=== PATIENT | female | born 1955 | race Caucasian/White ===

== ENCOUNTER 2021-05-18 12:02 | Observation (INO) ==
[2021-05-18] MEDS ORDERED: Ipratropium/Albuterol Neb 3 ML IH ONE (12:31)
[2021-05-18] MEDS ORDERED: Aspirin 325 MG TABLET PO ONE (12:31)
[2021-05-18] MEDS ORDERED: Famotidine 20 MG/2 ML VIAL IVP ONE (13:02)
[2021-05-18] MEDS ORDERED: Pantoprazole 40 MG VIAL IVP ONE (13:02)
[2021-05-18 13:17] LABS: Basophils # 0.1 K/mcL (0.0-0.2); Basophils % 0.3 %; Eosinophils # 0.2 K/mcL (0.0-0.6); Eosinophils % 0.8 %; Hematocrit 39.4 % (35.3-44.9); Hemoglobin 13.2 g/dL (11.5-15.4); Immature Granulocytes % 0.6 % (0-4); Lymphocytes # 0.8 K/mcL (0.6-4.6); Lymphocytes % 4.6 %; Mean Corpuscular HGB Conc 33.5 g/dL (31.6-35.5); Mean Corpuscular Hemoglobin 30.9 pg (28.0-33.3); Mean Corpuscular Volume 92.3 fL (83.0-100.0); Mean Platelet Volume 11.2 fL (9.4-12.4); Monocytes # 1.7 K/mcL (0.0-1.3); Monocytes % 9.6 %; Neutrophils # 15.3 K/mcL (1.6-8.9); Platelet Count 309 K/mcL (140-400); Red Blood Count 4.27 M/mcL (3.82-4.97); Red Cell Distribution Width 13.1 % (11.5-14.5); Segmented Neutrophils % 84.1 %; White Blood Count 18.2 K/mcL (4.3-11.1)
[2021-05-18 13:29] LABS: INR 1.2; Prothrombin Time 13.4 Seconds (9.4-12.1)
[2021-05-18 13:31] LABS: Activated Partial Thrombo Time 30.8 Seconds (26.0-36.0)
[2021-05-18 13:57] LABS: Influenza A PCR Negative (Negative); Influenza B PCR Negative (Negative); Resp. Syncytial Virus PCR Negative (Negative)
[2021-05-18 14:14] LABS: SARS-CoV-2 by PCR (In House) Negative (Negative)
[2021-05-18 14:34] LABS: BUN/Creatinine Ratio 19 (6-26); Blood Urea Nitrogen 18 mg/dL (8-23); Carbon Dioxide 25 mEq/L (23-29); Chloride 98 mEq/L (98-107); Glucose 113 mg/dL (70-105); Osmolality,Calculated 283 (280-300); Sodium 135 mEq/L (136-145); Troponin I 0.03 ng/mL (< 0.04); eGFR For African Americans > 60 (> 60); eGFR For Non-African Americans 60 (> 60)
[2021-05-18] MEDS ORDERED: Isovue-370 500 ML BOTTLE IVP ONE (14:36)
[2021-05-18] MEDS ORDERED: Azithromycin 500 MG in 0.9 % Sodium Chloride 250 ML IVPB ONE (14:36)
[2021-05-18] MEDS ORDERED: methylPREDNISolone 125 MG/2 ML VIAL IVP ONE (14:36)
[2021-05-18] MEDS ORDERED: Naloxone 0.4 MG/ML INJ IVP PRN (18:38)
[2021-05-18] MEDS ORDERED: Ipratropium/Albuterol Neb 3 ML AER PRN (18:41)
[2021-05-18] MEDS: Budesonide/Formoterol 160/4.5 1 PUFF INH IH SCH (21:04)
[2021-05-18] MEDS: cefTRIAXone 2,000 MG in Water for inj. (sterile) 10 ML IVP SCH (21:59)
[2021-05-18] MEDS: ALPRAZolam 0.25 MG TABLET PO SCH (21:59)
[2021-05-18] MEDS: Gabapentin 300 MG CAPSULE PO SCH (21:59)
[2021-05-18] MEDS ORDERED: 0.9 % Sodium Chloride 1,000 ML IVC SCH (22:00)
[2021-05-18] MEDS ORDERED: Vancomycin 1,750 MG/517.5 ML IV.SOLN IVPB ONE (23:00)
[2021-05-19 04:45] LABS: Basophils % 0.1 %; Hematocrit 37.4 % (35.3-44.9); Hemoglobin 12.2 g/dL (11.5-15.4); Immature Granulocytes % 0.5 % (0-4); Lymphocytes # 0.7 K/mcL (0.6-4.6); Lymphocytes % 4.4 %; Mean Corpuscular HGB Conc 32.6 g/dL (31.6-35.5); Mean Corpuscular Volume 92.1 fL (83.0-100.0); Mean Platelet Volume 11.1 fL (9.4-12.4); Monocytes # 0.6 K/mcL (0.0-1.3); Monocytes % 4.4 %; Neutrophils # 13.3 K/mcL (1.6-8.9); Platelet Count 299 K/mcL (140-400); Red Blood Count 4.06 M/mcL (3.82-4.97); Red Cell Distribution Width 12.9 % (11.5-14.5); Segmented Neutrophils % 90.6 %; White Blood Count 14.7 K/mcL (4.3-11.1)
[2021-05-19 04:59] LABS: BUN/Creatinine Ratio 21 (6-26); Blood Urea Nitrogen 17 mg/dL (8-23); Calcium 8.8 mg/dL (8.6-10.3); Carbon Dioxide 24 mEq/L (23-29); Chloride 104 mEq/L (98-107); Glucose 178 mg/dL (70-105); Osmolality,Calculated 292 (280-300); Potassium 3.2 mEq/L (3.5-5.1); Sodium 138 mEq/L (136-145); eGFR For African Americans > 60 (> 60); eGFR For Non-African Americans > 60 (> 60)
[2021-05-19] MEDS: Budesonide/Formoterol 160/4.5 1 PUFF INH IH SCH ×2 (07:17→20:31)
[2021-05-19] MEDS: AMILoride/HCTZ 5-50mg 1 EACH TABLET PO SCH (07:50)
[2021-05-19] MEDS: ALPRAZolam 0.25 MG TABLET PO SCH ×3 (07:50→20:08)
[2021-05-19] MEDS: Gabapentin 300 MG CAPSULE PO SCH ×3 (07:50→20:08)
[2021-05-19] MEDS: cefTRIAXone 2,000 MG in Water for inj. (sterile) 10 ML IVP SCH (07:51)
[2021-05-19] MEDS ORDERED: *HR* Propofol 200 MG/20 ML VIAL IVP ONE (09:33)
[2021-05-19] MEDS ORDERED: Ondansetron 4 MG/2 ML VIAL IVP PRN (10:26)
[2021-05-19] MEDS ORDERED: *HR* EPINEPHrine 1 MG/10 ML SYRINGE INTRATRACH PRN (12:11)
[2021-05-19] MEDS ORDERED: *HR* EPINEPHrine 1 MG/10 ML SYRINGE ONE (12:29)
[2021-05-19] MEDS: *HR* HYDROcodone/Acet 5/325 mg TABLET PO PRN (14:41)
[2021-05-19 17:20] LABS: Appearance of Body Fluid Cloudy (Clear); Volume of Body Fluid 22 mL
[2021-05-19] MEDS: Ringers Solution, Lactated 1,000 ML IVC SCH (19:33)
[2021-05-19] MEDS ORDERED: Vancomycin 1,250 MG/262.5 ML IV.SOLN IVPB SCH (23:00)
[2021-05-20] MEDS: *HR* HYDROcodone/Acet 5/325 mg TABLET PO PRN ×2 (04:20→08:36)
[2021-05-20 07:21] LABS: Basophils % 0.1 %; Hematocrit 36.8 % (35.3-44.9); Lymphocytes # 1.1 K/mcL (0.6-4.6); Lymphocytes % 4.7 %; Mean Corpuscular HGB Conc 32.6 g/dL (31.6-35.5); Mean Corpuscular Hemoglobin 30.8 pg (28.0-33.3); Mean Corpuscular Volume 94.6 fL (83.0-100.0); Mean Platelet Volume 11.3 fL (9.4-12.4); Monocytes # 1.2 K/mcL (0.0-1.3); Monocytes % 5.1 %; Neutrophils # 20.6 K/mcL (1.6-8.9); Platelet Count 340 K/mcL (140-400); Red Blood Count 3.89 M/mcL (3.82-4.97); Red Cell Distribution Width 13.2 % (11.5-14.5); Segmented Neutrophils % 89.1 %
[2021-05-20 07:48] LABS: White Blood Count 23.1 K/mcL (4.3-11.1)
[2021-05-20] MEDS: ALPRAZolam 0.25 MG TABLET PO SCH (07:53)
[2021-05-20] MEDS: cefTRIAXone 2,000 MG in Water for inj. (sterile) 10 ML IVP SCH (07:54)
[2021-05-20] MEDS: AMILoride/HCTZ 5-50mg 1 EACH TABLET PO SCH (07:54)
[2021-05-20] MEDS: Gabapentin 300 MG CAPSULE PO SCH (07:54)
[2021-05-20 08:08] LABS: BUN/Creatinine Ratio 28 (6-26); Blood Urea Nitrogen 23 mg/dL (8-23); Calcium 8.8 mg/dL (8.6-10.3); Carbon Dioxide 26 mEq/L (23-29); Chloride 109 mEq/L (98-107); Glucose 116 mg/dL (70-105); Osmolality,Calculated 299 (280-300); Potassium 4.3 mEq/L (3.5-5.1); Sodium 142 mEq/L (136-145); eGFR For African Americans > 60 (> 60); eGFR For Non-African Americans > 60 (> 60)
[2021-05-20] MEDS: Budesonide/Formoterol 160/4.5 1 PUFF INH IH SCH (08:35)
[2021-05-20 08:37] VITALS: O2SAT 96
[2021-05-20] MEDS: Ringers Solution, Lactated 1,000 ML IVC SCH (09:28)
[2021-05-20 11:35] VITALS: BP 127/69; PULSE 96; TEMP 97.7
== END 2021-05-20 14:50 | disposition home or self-care (01) ==
LOC: 3NENU 12:02 → EMEROOARM 12:02 → SUATTDRO 18:18 → 3NENU 20:11
PROVIDERS: ADMIT Internal Medicine; ATTEND Internal Medicine